=== PATIENT | male | born 1990 | race Caucasian/White ===

== ENCOUNTER 2021-06-19 12:55 | Emergency (ER) | payer MEDICAID, OTHER, SELFPAY ==
[2021-06-19 14:10] VITALS: BP 147/76; PULSE 86; TEMP 37.2; O2SAT 99; BMI 32.5
[2021-06-19 14:23] LABS: MANUAL DIFF FLAG NO
[2021-06-19 14:24] LABS: Basophils Percent Auto 0.5 % (0-2); Eosinophils Absolute Auto 0.3 X10*3/uL (0.0-0.4); Eosinophils Percent Auto 3.3 % (0-4); Hematocrit 48.4 % (42.0-52.0); Hemoglobin 16.2 g/dl (14.0-18.0); Imm Gran Abs Auto 0.02 X10*3/uL (0.00-0.03); Imm Gran Pct Auto 0.3 % (0.0-0.4); Lymphocytes Absolute Auto 2.7 X10*3/uL (1.2-4.9); Lymphocytes Percent Auto 34.4 % (20-40); Mean Corpuscular HGB Conc 33.5 g/dl (31.0-36.0); Mean Corpuscular Hemoglobin 30.7 pg (27.0-33.0); Mean Corpuscular Volume 91.8 fL (80.0-98.0); Mean Platelet Volume 9.9 fL (9.4-12.4); Monocytes Absolute Auto 0.6 X10*3/uL (0.1-1.2); Monocytes Percent Auto 7.4 % (2-11); Neutrophils Absolute Auto 4.3 x10*3/uL (2.0-8.3); Neutrophils Percent Auto 54.1 % (45-73); Platelet Count 306 X10*3/uL (160-400); Red Blood Count 5.27 X10*6/uL (4.60-5.80); Red Cell Distribution Width 12.6 % (11.0-16.0); White Blood Count 7.9 X10*3/uL (4.8-10.8)
[2021-06-19 14:36] LABS: Anion Gap 11 (12-20); Blood Urea Nitrogen 9 mg/dL (9-16); Calcium 9.6 mg/dL (8.4-10.2); Carbon Dioxide 28 mmol/L (22-29); Chloride 105 mmol/L (96-108); Creatinine Clr Calc Pharmacy 110.7; Estimated Glomerular Filt Rate > 60; Glucose Random 99 mg/dL (60-115); Potassium 4.3 mmol/L (3.3-5.1); Sodium 140 mmol/L (135-145)
--- NOTE | 2021-06-19 14:43 | ED.SKABFB ---
HPI - Skin/Abscess/Foreign Bdy General Chief complaint: Skin/Abscess/Foreign Body <EM Fletcher Last Filed: 06/19/21 14:52> Stated complaint: Cyst/fever <EM Fletcher Last Filed: 06/19/21 14:52> Time Seen by Provider: 06/19/21 14:23 <Marianne Coates NP - Last Filed: 06/19/21 14:52> Source: patient and interpreter translator <EM Fletcher Last Filed: 06/19/21 14:52> Mode of arrival: ambulatory <EM Fletcher Last Filed: 06/19/21 14:52> Limitations: language barrier <EM Fletcher Last Filed: 06/19/21 14:52> History of Present Illness HPI narrative: 30-year-old male Ghanaian-speaking here with reports of swelling, redness and pain to the inner right thigh for 3-4 days. No fevers or chills <EM Fletcher Last Filed: 06/19/21 14:52> Related Data Home medications: Previous Rx's Medication Instructions Recorded doxycycline monohydrate 100 mg 100 mg PO BID #20 tab 06/19/21 tablet <EM Fletcher Last Filed: 06/19/21 14:52> Allergies/Adverse reactions: Allergies Allergy/AdvReac Type Severity Reaction Status Date / Time No Known Drug Allergies Allergy Unknown Verified 06/19/21 14:16 <EM Fletcher Last Filed: 06/19/21 14:52> Review of Systems Review of Systems: Yes all other systems are reviewed and are negative <EM Fletcher Last Filed: 06/19/21 14:52> Constitutional: Constitutional: Reports no additional constitutional complaints, Denies body ache(s), Denies chills, Denies fever(s), Denies headache(s) and Denies weakness <EM Fletcher Last Filed: 06/19/21 14:52> Eyes: Eyes: Reports no additional eye complaints and Denies change in vision <Marianne Coates NP - Last Filed: 06/19/21 14:52> ENT: Reports system reviewed and no additional complaints, except as documented, Denies dizziness, Denies headache(s), Denies nasal congestion, Denies nasal discharge and Denies neck pain <Marianne Coates NP - Last Filed: 06/19/21 14:52> Cardiovascular: Cardiovascular: Reports no additional cardiovascular complaints, Denies chest pain, Denies leg edema and Denies dyspnea <Marianne Coates NP - Last Filed: 06/19/21 14:52> Respiratory: Respiratory: Reports no additional respiratory complaints, Denies cough and Denies dyspnea <Marianne Coates NP - Last Filed: 06/19/21 14:52> Gastrointestinal: Gastrointestinal: Reports no additional gastrointestinal complaints, Denies abdominal pain, Denies diarrhea, Denies nausea and Denies vomiting <Marianne Coates NP - Last Filed: 06/19/21 14:52> Genitourinary: Genitourinary: Denies urinary incontinence <Marianne Coates NP - Last Filed: 06/19/21 14:52> Musculoskeletal: Musculoskeletal: Reports no additional musculoskeletal complaints, Denies back pain, Denies arthralgias, Denies joint swelling, Denies neck pain, Denies numbness and Denies tingling <Marianne Coates NP - Last Filed: 06/19/21 14:52> Integumentary/Breasts: Skin/Breast: Reports system reviewed and no additional complaints, except as docu, Reports swelling, Reports erythema and Denies rash <Marianne Coates NP - Last Filed: 06/19/21 14:52> Neurologic: Reports system reviewed and no additional complaints, except as documented, Denies Abnormal speech present, Denies dizziness, Denies headache(s), Denies numbness, Denies tingling and Denies weakness <Marianne Coates NP - Last Filed: 06/19/21 14:52> PMF Past Medical History Attestation statement: The following information was validated with the patient. <Marianne Coates NP - Last Filed: 06/19/21 14:52> Source: old records reviewed and nursing notes reviewed <Marianne Coates NP - Last Filed: 06/19/21 14:52> Social History Social History: Social History Advance Directives: No Advance Directives Information Provided: No <Marianne Coates NP - Last Filed: 06/19/21 14:52> Physical Exam Vital Signs: Vital Signs: Last Vital Signs Temp 99.0 F 06/19/21 14:10 Pulse 86 06/19/21 14:10 BP 147/76 H 06/19/21 14:10 Pulse Ox 99 06/19/21 14:10 BMI result Body Mass Index 32.5 <Marianne Coates NP - Last Filed: 06/19/21 14:52> Vital Signs: Last Vital Signs Temp 99.0 F 06/19/21 14:10 Pulse 86 06/19/21 14:10 BP 147/76 H 06/19/21 14:10 Pulse Ox 99 06/19/21 14:10 BMI result Body Mass Index 32.5 <Hermann Grant MD - Last Filed: 06/21/21 06:58> Const: General: cooperative, healthy appearing, comfortable and no acute distress <Marianne Coates NP - Last Filed: 06/19/21 14:52> Orientation/consciousness: patient oriented x3 <Marianne Coates NP - Last Filed: 06/19/21 14:52> Limitations: no limitations <Marianne Coates NP - Last Filed: 06/19/21 14:52> HENMT: Head: Yes normal to inspection <Marianne Coates NP - Last Filed: 06/19/21 14:52> Ears: hearing grossly normal bilaterally <Marianne Coates NP - Last Filed: 06/19/21 14:52> General nose exam: Normal external nose present <Marianne Coates NP - Last Filed: 06/19/21 14:52> Face and sinus: Yes normal facial exam <Marianne Coates NP - Last Filed: 06/19/21 14:52> Mouth: Normal oral and palatal mucosa present <Marianne Coates NP - Last Filed: 06/19/21 14:52> Throat: Yes posterior oropharynx normal <Marianne Coates NP - Last Filed: 06/19/21 14:52> Eyes: General: appearance normal, both eyes and all related structures <Marianne Coates NP - Last Filed: 06/19/21 14:52> Pupils: Equal, round and reactive pupils present <Marianne Coates POLITICAL REPORTER - Last Filed: 06/19/21 14:52> Neck: Neck: Yes normal visual inspection <Marianne Coates POLITICAL REPORTER - Last Filed: 06/19/21 14:52> Chest: Chest palpation & inspection: normal inspection of the chest <Marianne Coates NP - Last Filed: 06/19/21 14:52> Resp: Effort & Inspection: normal respiratory effort <Marianne Coates NP - Last Filed: 06/19/21 14:52> Auscultation: clear to auscultation bilaterally <Marianne Coates POLITICAL REPORTER - Last Filed: 06/19/21 14:52> Cardio: Rate: regular rate <Marianne Coates NP - Last Filed: 06/19/21 14:52> Rhythm: regular rhythm <Marianne Coates POLITICAL REPORTER - Last Filed: 06/19/21 14:52> Peripheral pulses: Peripheral pulses 2+ throughout <Marianne Coates POLITICAL REPORTER - Last Filed: 06/19/21 14:52> GI: Inspection: Yes normal to inspection <Marianne Coates NP - Last Filed: 06/19/21 14:52> Palpation (GI): Soft to palpation and nontender <Marianne Coates POLITICAL REPORTER - Last Filed: 06/19/21 14:52> Auscultation: normal bowel sounds <Marianne Coates NP - Last Filed: 06/19/21 14:52> Back/Spine/Pelvis: Thoracic/Lumbar Spine: thoracic and lumbar spine normal to inspection <Marianne Coates NP - Last Filed: 06/19/21 14:52> Skin: Other: To the right inner groin there is a small area of redness, swelling and induration. There is no fluctuance or pointing. <Marianne Coates NP - Last Filed: 06/19/21 14:52> General skin exam: no rashes or lesions noted <Marianne Coates NP - Last Filed: 06/19/21 14:52> Neuro: General: patient oriented x3, no focal motor deficits and normal sensation to monofilament <Marianne Coates NP - Last Filed: 06/19/21 14:52> Cranial nerves: Yes Equal, round and reactive pupils present <EM Fletcher Last Filed: 06/19/21 14:52> Cognition (Neuro): normal cognition <Marianne Coates NP - Last Filed: 06/19/21 14:52> Speech: No Abnormal speech present <EM Fletcher Last Filed: 06/19/21 14:52> Gait exam (Neuro): Normal gait present <EM Fletcher Last Filed: 06/19/21 14:52> Motor exam (neuro): 5/5 motor strength present throughout <Marianne Coates NP - Last Filed: 06/19/21 14:52> Extrem: General: Yes normal to inspection <Marianne Coates NP - Last Filed: 06/19/21 14:52> Course Course Course Narrative: 30-year-old here with local area of redness, swelling and tenderness to the right inner groin consistent with a small abscess. There is no fluctuance or pointing of so at this time I do not feel like an incision and drainage would be helpful. Recommend patient do oral antibiotics and warm compresses at home. Reviewed worrisome signs and symptoms of when to return to the emergency department. Comfortable discharge home. <EM Fletcher Last Filed: 06/19/21 14:52> MDM - Skin/Abscess/Foreign Bdy Medical Records Attestation: I reviewed the patient's medical records. <EM Fletcher Last Filed: 06/19/21 14:52> Lab Data Attestation: I reviewed the patient's lab results. <Marianne Coates NP - Last Filed: 06/19/21 14:52> Result diagrams: : 06/19/21 14:19 06/19/21 14:19 <Marianne Coates NP - Last Filed: 06/19/21 14:52> Labs: Lab Results 06/19/21 06/19/21 Range/Units 14:19 14:19 WBC 7.9 (4.8-10.8) X10*3/uL RBC 5.27 (4.60-5.80) X10*6/uL Hgb 16.2 (14.0-18.0) g/dl Hct 48.4 (42.0-52.0) % MCV 91.8 (80.0-98.0) fL MCH 30.7 (27.0-33.0) pg MCHC 33.5 (31.0-36.0) g/dl RDW 12.6 (11.0-16.0) % Plt Count 306 (160-400) X10*3/uL MPV 9.9 (9.4-12.4) fL Immature Gran % (Auto) 0.3 (0.0-0.4) % Neut % (Auto) 54.1 (45-73) % Lymph % (Auto) 34.4 (20-40) % [place] % (Auto) 7.4 (2-11) % Eos % (Auto) 3.3 (0-4) % Baso % (Auto) 0.5 (0-2) % Lymph # (Auto) 2.7 (1.2-4.9) X10*3/uL [place] # (Auto) 0.6 (0.1-1.2) X10*3/uL Eos # (Auto) 0.3 (0.0-0.4) X10*3/uL Baso # (Auto) 0.0 (0.0-0.2) X10*3/uL Abs Immat Gran (auto) 0.02 (0.00-0.03) X10*3/uL Absolute Neuts (auto) 4.3 (2.0-8.3) x10*3/uL Absolute Nucleated RBC 0.000 (0.0-0.012) X10*3/uL Nucleated RBC % (auto) 0.0 (0.0-0.2) /100WBC Sodium 140 (135-145) mmol/L Potassium 4.3 (3.3-5.1) mmol/L Chloride 105 (96-108) mmol/L Carbon Dioxide 28 (22-29) mmol/L Anion Gap 11 L (12-20) BUN 9 (9-16) mg/dL Creatinine 1.00 (0.5-1.4) mg/dL Estim Creat Clear Calc 110.7 Estimated GFR > 60 Random Glucose 99 (60-115) mg/dL Calcium 9.6 (8.4-10.2) mg/dL <Marianne Coates, POLITICAL REPORTER - Last Filed: 06/19/21 14:52> Lab Results 06/19/21 06/19/21 Range/Units 14:19 14:19 WBC 7.9 (4.8-10.8) X10*3/uL RBC 5.27 (4.60-5.80) X10*6/uL Hgb 16.2 (14.0-18.0) g/dl Hct 48.4 (42.0-52.0) % MCV 91.8 (80.0-98.0) fL MCH 30.7 (27.0-33.0) pg MCHC 33.5 (31.0-36.0) g/dl RDW 12.6 (11.0-16.0) % Plt Count 306 (160-400) X10*3/uL MPV 9.9 (9.4-12.4) fL Immature Gran % (Auto) 0.3 (0.0-0.4) % Neut % (Auto) 54.1 (45-73) % Lymph % (Auto) 34.4 (20-40) % [place] % (Auto) 7.4 (2-11) % Eos % (Auto) 3.3 (0-4) % Baso % (Auto) 0.5 (0-2) % Lymph # (Auto) 2.7 (1.2-4.9) X10*3/uL [place] # (Auto) 0.6 (0.1-1.2) X10*3/uL Eos # (Auto) 0.3 (0.0-0.4) X10*3/uL Baso # (Auto) 0.0 (0.0-0.2) X10*3/uL Abs Immat Gran (auto) 0.02 (0.00-0.03) X10*3/uL Absolute Neuts (auto) 4.3 (2.0-8.3) x10*3/uL Absolute Nucleated RBC 0.000 (0.0-0.012) X10*3/uL Nucleated RBC % (auto) 0.0 (0.0-0.2) /100WBC Sodium 140 (135-145) mmol/L Potassium 4.3 (3.3-5.1) mmol/L Chloride 105 (96-108) mmol/L Carbon Dioxide 28 (22-29) mmol/L Anion Gap 11 L (12-20) BUN 9 (9-16) mg/dL Creatinine 1.00 (0.5-1.4) mg/dL Estim Creat Clear Calc 110.7 Estimated GFR > 60 Random Glucose 99 (60-115) mg/dL Calcium 9.6 (8.4-10.2) mg/dL <Hermann Grant MD - Last Filed: 06/21/21 06:58> Discharge Plan Discharge Clinical Impression: Abscess of skin or subcutaneous tissue <Marianne Coates NP - Last Filed: 06/19/21 14:52> Patient Disposition: Home, Self-Care <Marianne Coates NP - Last Filed: 06/19/21 14:52> Instructions: Abscess (ED) <Marianne Coates NP - Last Filed: 06/19/21 14:52> Additional Instructions: Warm compresses 3-4 times daily Take all of the antibiotics as prescribed Return for fever, increasing redness or warmth <Marianne Coates NP - Last Filed: 06/19/21 14:52> Prescriptions: New doxycycline monohydrate 100 mg tablet 100 mg PO BID Qty: 20 RF: 0 <Marianne Coates NP - Last Filed: 06/19/21 14:52> Referrals: Physician,Unknown J [Physician] - 2 days <Marianne Coates NP - Last Filed: 06/19/21 14:52> Interventions: ED Discharge Assessment Last Done: 06/19/21 14:46 <Marianne oCates NP - Last Filed: 06/19/21 14:52> Discharge Date/Time: 06/19/21 14:47 <Marianne Coates NP - Last Filed: 06/19/21 14:52> Print Language: Ghanaian <Marianne Coates NP - Last Filed: 06/19/21 14:52>
== END 2021-06-19 14:47 | disposition home or self-care (01) ==
LOC: HO.ED 14:42
PROVIDERS: Emergency Provider Emergency Medicine
DX: L02.214 Cutaneous abscess of groin (principal); Z79.899 Other long term (current) drug therapy
CPT/HCPCS: 36415; 80048; 85025; 99283

== ENCOUNTER 2025-03-19 20:09 | Emergency (ER) | payer OTHER, SELFPAY ==
[2025-03-19 20:14] VITALS: BP 139/85; PULSE 85; RESP 16; TEMP 36.3; O2SAT 100; BMI 32.3
--- OUTSIDE RECORDS SUMMARY | 2025-03-19 20:42 | XMS_ITS | Encounter Summary ---
Author Organization [facility] Address [address] [facility] [address] [place] [id number] Phone Care Team Providers Care Mill Washer Name Role Phone Pcp, Unknown Primary Care Provider Kendrick Madrid MD Primary Care Provider [phone] Encounter Details Date Type Department Care Team (Late st Contact Info) Description 07/30/2022 Procedure Pass [facility], Ct Scan - [address] [address] Social History Tobacco Use Types Packs/Day Years Used Date Smoking Tobacco: Never Assessed Sex and Gender Information Value Date Recorded Sex Assigned at Male 11/17/2024 11:57 AM EDT Legal Sex Male 11:51 AM EDT Gender Identity Male 11/17/2024 11:57 AM EDT Sexual Orientation Not on file documented as of this encounter Functional Status * Calculated C-SSRS Risk Score (Lifetime/Recent) Answer Date of Assessment Author No Risk Indicated 07/30/2022 9:10 AM Tamara Rocha RN * [place] Suicide Severity Rating Scale (Screener/Recent Self-Report) Question Answer Date of Assessment Author 1. Wish to be (Past 1 Month) No 023 9:10 AM Tamara Rocha RN 2. Non-Specific Active Suici sahil Thoughts (Past 1 Month) No 07/30/2022 9:10 AM Gali Rocha RN 6. Suicidal Behavior (Lifetime) No 9:10 AM Tamara Rocha RN documented as of this encounter Plan of Treatment Not on file documented as of this encounter Visit Diagnoses Not on filedocumented in this encounter Additional Health Concerns Infection Onset Date Last Indicated Resolved Time CoV-Risk 10/26/2023 10/26/2023 11/06/2023 1:22 AM EDT CoV-Risk 12/30/2023 12/30/2023 12/30/2023 12:2 3 PM EDT COVID-19 12/30/2023 12/30/2023 01/20/2024 1:21 AM EDT documented as of this encounter Care Teams Mill Washer Relationship Specialty Start Date End Date Pcp, Unknown PCP - General 07/30/22 05/23/23 Kendrick Delgado MD [address] [place] [phone] [email or web address] PCP - General Family Medicine 05/24/23 documented as of this encounter Additional Source Comments The information contained in this document represents components of the legal health record. It is not the complete legal health record.[facility]
--- OUTSIDE RECORDS SUMMARY | 2025-03-19 20:42 | XMS_ITS | Encounter Summary ---
Author Organization [facility] Address [address] [place] [address] [address] [place] [address] Care Team Providers Care Client Executive Name Role Phone Unavailable Primary Care Provider Unavailabl e Encounter Details Date Type Department Care Team (Late st Contact Info) Description 03/09/2023 Orders Only [facility] [address] [place] [address] Danae Varma DDS [address] [place], [place] [id number] Social History Tobacco Use Types Packs/Day Years Used Date Smoking Tobacco: Never Passive Smoke Exposure: Never Smokeless Tobacco: Never Alcohol Use Standard Drinks/Week Comments Never 0 (1 standard drink = 0.6 oz pur e alcohol) Sex and Gender Information Value Date Recorded Sex Assigned at Male 05/01/2022 3:00 PM EST Legal Sex Male 8:40 PM EDT Gender Identity Choose not to disclose 3:00 PM EST Sexual Orientation Choose not to disclose 2021 3:00 PM EST documented as of this encounter Plan of Treatment Not on file documented as of this encounter Visit Diagnoses Not on filedocumented in this encounter
--- OUTSIDE RECORDS SUMMARY | 2025-03-19 20:42 | XMS_ITS | Clinical Summary ---
Author Organization [facility] Address [address] [address] Phone Care Team Providers Care Loader [employer] Name Role Phone Kendrick Delgado MD Primary Care Provider [phone] Medications amitriptyline (ELAVIL) 50 MG tablet nightly at bedtime. Active hydrOXYzine (ATARAX) 25 MG tablet every 8 (eight) hours as needed. 03/30/2023 Active melatonin 5 mg Tab nightly at bedtime. 05/15/2023 Active valACYclovir (VALTREX) 1000 MG tablet TOME JESSICA TABLETA DOS VECES AL D A POR 7 D 05/15/2023 Active albuterol 90 mcg/actuation inhaler Inhale 2 puffs into the lungs every 6 (six) hours as needed for wheezing. 8 g 05/24/2023 Active inhaler spacing device (AEROCHAMBER,BR EATHERITE) Spcr Inhale 1 each into the lungs every 4 (four) hours as needed. 1 each 05/24/2023 Active valACYclovir (VALTREX) 500 MG tablet Take 1 tablet by mouth 2 (two) times a day. 08/24/2023 Active ibuprofen (ADVIL,MOTRIN) 600 MG tablet TAKE 1 TABLET (600 MG) BY MOUTH EVERY 6 (SIX) HOURS IF NEEDED FOR MILD PAIN FOR UP TO 20 DOSES. 09/17/2023 Active lidocaine (LIDODERM) 5 % Place 1 patch onto the skin daily. Remove & Discard patch within 12 hours or as directed by 30 patch 10/12/2024 Active Active Problems No known active problems Encounters Date Type Department Care Team Description 02/12/2025 1:45 PM EDT Office Visit [address] [address] Adrianne Lara NP Kobylarz, Sandra, PT Acute left-sided low back pain with left-sided sciatica (Primary Dx) 02/03/2025 3:15 PM EDT Office Visit [address] [address] Adrianne Lara NP Kobylarz, Sandra, LAURO Acute left-sided low back pain with left-sided sciatica (Primary Dx) 01/23/2025 12:00 PM EDT Office Visit [address] [address] Kendrick Delgado MD Kobylarz, Sandra, PT Acute left-sided low back pain with left-sided sciatica (Primary Dx) 01/21/2025 4:00 PM EDT Office Visit [address] [address] Adrianne Lara NP Kobylarz, Sandra, PT Acute left-sided low back pain with left-sided sciatica (Primary Dx) 01/15/2025 6:45 AM EDT Office Visit [address] [address] Kendrick Delgado MD Kobylarz, Sandra, PT Acute left-sided low back pain with left-sided sciatica (Primary Dx) 01/12/2025 6:45 AM EDT Office Visit [address] [address] Kendrick Delgado MD Kobylarz, Sandra, PT Acute left-sided low back pain with left-sided sciatica (Primary Dx) 01/05/2025 6:45 AM EDT Office Visit [address] [address] Kendrick Delgado, Chayo Butler, PT Acute left-sided low back pain with left-sided sciatica (Primary Dx) 01/02/2025 6:45 AM EDT Office Visit [address] [address] Kendrick Delgado, Chayo Butler, PT Acute left-sided low back pain with left-sided sciatica (Primary Dx) 12/25/2024 8:15 AM EDT Office Visit [address] [address] Kendrick Delgado, Chayo Butler, PT Acute left-sided low back pain with left-sided sciatica (Primary Dx) 12/18/2024 6:45 AM EDT Office Visit [address] [address] Kendrick Delgado, Chayo Butler, PT Acute left-sided low back pain with left-sided sciatica (Primary Dx) from Last 3 Months Social History Tobacco Use Types Packs/Day Years Used Date Smoking Tobacco: Never Smokeless Tobacco: Never Tobacco Cessation:Counseling Given: Not Answered Education Answer Date Recorded Are you interested in more education? Not on juvenal e 11/18/2024 Are you concerned about learning? Not on file 11/18/2024 No 11/18/2024 No 11/18/2024 Digital Access Answer Date Recorded No 11/18/2024 No 11/18/2024 Reliable internet access at home? Not on file 11/18/2024 Device with a working camera? Not on file Intimate Partner Violence Answer Date R ecorded Are you denied basic needs s uch as food, clothing, or medical care? No 12/30/2023 In the past 12 months have y ou been in a relationship with a person who hurts, threatens, or tries to control you? No 12/30/2023 Are you denied basic needs s uch as food, clothing, or medical care? No 12/30/2023 In the past 12 months have y ou been in a relationship with a person who hurts, threatens, or tries to control you? No 12/30/2023 Sex and Gender Information Value Date Recorded Sex Assigned at Male 11/17/2024 11:57 AM EDT Legal Sex Male 11:51 AM EDT Gender Identity Male 11/17/2024 11:57 AM EDT Sexual Orientation Not on file Last Filed Vital Signs Vital Sign Reading Time Taken Comments Blood Pressure 143/86 10/12/2024 2:09 PM EDT Pulse 70 10/12/2024 2:09 PM EDT Temperature 36.9 C (98.4 F) 10/12/2024 2:09 PM EDT Respiratory Rate 18 10/12/2024 2:09 PM EDT Oxygen Saturation 99% 10/12/2024 2:09 PM EDT Inhaled Oxygen Concentration - - Weight 87.5 kg (193 lb) 10/12/2024 2:09 PM EDT Height 175.3 cm (5' 9 ) 07/30/2022 9:08 AM EST Body Mass Index 28.5 07/30/2022 9:08 AM EST Plan of Treatment Health Maintenance Due Date Last Done Comments Adult Td,Tdap Booster 1989 LIPID PANEL 1989 DEPRESSION SCREENING 2001 HEPATITIS C SCREENING 11/04/2007 HIV ONE-TIME SCREENING (18-6 5 YEARS) 11/04/2007 INFLUENZA VACCINE (#1) 2024 03/05/2024 COVID-19 VACCINE (2024-2 6 season) 2025 SCREENING FOR DIABETES 12/29/2026 12/30/2023 SMOKING STATUS SCREENING (On ce After 26 Yrs) Completed 10/12/2024 HEPATITIS A VACCINES Aged Out No long er eligible based on patient's age to complete this topic HIB VACCINES Aged Out No longer eligi ble based on patient's age to complete this topic MENINGOCOCCAL VACCINES (ACWY) Aged Out No longer eligible based on patient's age to complete this topic MENINGOCOCCAL VACCINES (B) Aged Out N o longer eligible based on patient's age to complete this topic PNEUMOCOCCAL VACCINES (0-49 years) Aged Out No longer eligible based on patient's age to complete this topic Medical Devices Not on [place] [address] [place] [address] [place] [address] [employer] Care Teams [employer] Relationship Specialty Start Date End Date Kendrick Delgado MD [address] [place] [phone] [email or web address] PCP - General Family Medicine 05/24/23 Additional Source Comments The information contained in this document represents components of the legal health record. It is not the complete legal health record.[facility]
--- OUTSIDE RECORDS SUMMARY | 2025-03-19 20:42 | XMS_ITS | Clinical Summary ---
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 2 Active ibuprofen 600 MG tabletIndicatio ns:Closed fracture of tooth, initial encounter Take 1 tablet (600 mg) by mouth every 6 (six) hours if needed for mild pain for up to 20 doses. 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 Social History Tobacco Use Types Packs/Day Years Used Date Smoking Tobacco: Never Passive Smoke Exposure: Never Smokeless Tobacco: Never Tobacco Cessation:Counseling Given: Not Answered Alcohol Use Standard Drinks/Week Comments Never 0 (1 standard drink = 0.6 oz pur e alcohol) Sex and Gender Information Value Date Recorded Sex Assigned at Male 05/01/2022 3:00 PM EST Legal Sex Male 8:40 PM EDT Gender Identity Choose not to disclose 3:00 PM EST Sexual Orientation Choose not to disclose 2021 3:00 PM EST Last Filed Vital Signs Vital Sign Reading Time Taken Comments Blood Pressure 122/78 04/10/2024 1:06 PM EST Pulse 60 04/10/2024 1:06 PM EST Temperature - - Respiratory Rate - - Oxygen Saturation 98% 04/26/2022 4:15 PM EST Inhaled Oxygen Concentration - - Weight 92.1 kg (203 lb) 01/03/2022 2:00 PM EDT Height 168.9 cm (5' 6.5 ) 01/03/2022 2:00 PM EDT Body Mass Index 32.27 01/03/2022 2:00 PM EDT Plan of Treatment Health Maintenance Due Date Last Done Comments Depression Screening 1989 Lipid Panel 1989 SDOH Screening 1989 Disability Screening 1989 Alcohol/Substance Use Screening 2001 Family Planning (PISQ) 2004 HPV Vaccines (1 - 3-dose series) 2004 DTaP/Tdap/Td Vaccines (1 - Tdap) 2008 Pneumococcal Vaccine: Pediatrics (0 to 5 Years) and At-Risk Patients (6 to 49) Years (1 of 2 - PCV) 2008 Hepatitis A Vaccines (2 of 2 - Risk 2-dose series) 02/10/2022 08/10/2021 Hepatitis B Vaccines (3 of 3 - 19+ 3-dose series) 02/28/2022 01/03/2022, 08/10/2021 COVID-19 Vaccine (3 - 2024- season) 2025 05/05/2022, 09/08/2021 Influenza Vaccine (#1) 2025 05/15/2023 Dental Oral Exam 02/19/2025 08/18/2024, , 04/10/2024, Additional history exists Dental Prophylaxis 02/19/2025 08/18/2024, 1 06/10/2023, 04/23/2023 Tobacco Screening 08/18/2025 08/18/2024 Dental X-Ray: Bitewings 08/19/2025 08/19/19 25, 04/10/2024, 09/17/2023, Additional history exists Dental X-Ray: Full Mouth 08/20/2027 025, 04/23/2023, 10/17/2022 Zoster Vaccines (1 of 2) 11/04/2039 RSV Patients and Patients Aged 60 years or older (1 - 1-dose 75+ series) 2064 HIV Screening Completed 07/14/2021 Hepatitis C Screening Completed 07/14/2021 HIB Vaccines Aged Out No longer eligi ble based on patient's age to complete this topic IPV Vaccines Aged Out No longer eligi ble based on patient's age to complete this topic Meningococcal B Vaccine Aged Out No l onger eligible based on patient's age to complete this topic Meningococcal Vaccine Aged Out No kaia jl eligible based on patient's age to complete this topic RSV under 20 months Aged Out No longe r eligible based on patient's age to complete this topic Rotavirus Vaccines Aged Out No longer eligible based on patient's age to complete this topic Procedures Procedure Name Priority Date/Time Associated Diagnosis Comments Full PROPHYLAXIS - ADULT Routine 08/18/2024 3:00 PM EDT PERIODIC ORAL EVALUATION - ESTABLISHED PATIENT Routine 08/18/2024 3:00 PM EDT INTRAORAL - COMPLETE SERIES OF RADIOGRAPHIC IMAGES Routine 08/18/2024 11:00 AM EDT ZZZ HISTORICAL HEPATITIS C ANTIBODY TEST Routine 07/14/2021 11:52 AM EST HIV 1/2 ANTIGEN/ANTIBODY, FOURTH GENERATION W/RFL Routine 07/14/2021 11:52 AM EST from Last 3 Months or Most Recently Relevant to Health Maintenance Results * -Hepatitis C Antibody Test (07/14/2021 11:52 AM EST) ANTI-HEPATITIS C NEGATIVE (NEG) [facility] Comment: Reference range: Negative This test was performed on the [employer] immunoassay system. 07/14/2021 11:5 2 AM EST us Mu Mckenzie NP HISTORICAL/NON ORDERABLE LAB S Final Result [facility] [address] * -HIV AB-AG 4TH GENERATION (07/14/2021 11:52 AM EST) RESULT 4TH GEN HIV AB-AG NEGATIVE (NEG) [facility] Comment: Negative for antibodies to HIV 1 and HIV 2 and P24 antigen. Reference range: Negative Additional note: Written patient authorization is required for each separate release of this test result. This test was performed on the [employer] immunoassay system. 07/14/2021 11:5 2 AM EST us Mu Mckenzie NP LAB BLOOD ORDERABLES Final R esult [facility] [address] from Last 3 Months or Most Recently Relevant to Health Maintenance Insurance [facility]
--- NOTE | 2025-03-19 20:59 | ED.EXTPRO ---
HPI - Extremity Problem General Chief complaint: Extremity Problem Stated complaint: severe back pain Time Seen by Provider: 03/19/25 20:58 Source: patient Mode of arrival: ambulatory Limitations: no limitations History of Present Illness ED Provider: aPul HARMAN HPI Narrative: The patient is a 34-year-old male presenting to the ED reporting he has been suffering from left lower leg pain secondary to lumbar radiculopathy for the past 5 months, for which time he has been out of work. The patient reports he is scheduled for a lumbar injection on Sunday however was required to go back to light duty at work today. 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 The patient left work and went to the ED at [facility], but left due to wait time and presents to this ED for evaluation. The patient reports he has been compliant with his nighttime gabapentin and his Flexeril, however did not take the Flexeril today as he was working. The patient denies bowel/bladder incontinence, urinary retention, saddle paresthesias, or lower extremity weakness. Related Data Previous Rx's ?Medication ?Instructions ?Recorded doxycycline monohydrate 100 mg 100 mg PO BID #20 tabs 06/19/21 tablet Allergies Allergy/AdvReac Type Severity Reaction Status Date / Time No Known Drug Allergies Allergy Unknown Verified 03/19/25 20:16 Review of Systems Review of Systems: Yes all other systems are reviewed and are negative PMFSH Social History Social History Smoked in Last 30 Days: No Advance Directives: No Advance Directives Information Provided: No Do you have a plan to hurt others: No Plan Physical Exam Vital Signs: Vital Signs: Last Vital Signs Temp 97.4 F 03/19/25 20:14 Pulse 85 03/19/25 20:14 Resp 16 03/19/25 20:14 BP 139/85 03/19/25 20:14 Pulse Ox 100 03/19/25 20:14 O2 Del Method Room Air 03/19/25 20:14 BMI result Body Mass Index 32.3 CONSTITUTIONAL: The patient appears non-toxic, well nourished and in no acute distress. Vital signs as documented. HEAD: Atraumatic, normocephalic. EYES: EOMs grossly intact, pupils equal, conjunctiva clear, no exudate. ENT: Nares patent, no discharge. Airway patent, no audible stridor, visible mucosa is pink and moist without noted lesions. NECK: trachea is midline, no obvious masses or gross abnormalities. CHEST: Symmetric movement, normal appearance. LUNGS: Non-labored work of breathing. CARDIAC: No evidence of hypoperfusion. ABDOMEN: Nondistended, no obvious injury. : Deferred. BACK: No midline spinous process tenderness, no crepitus or step-off. Patient ambulates with a steady gait but with discomfort. EXTREMITIES: Moves all extremities spontaneously without reported pain. No obvious injury or deformity noted. NEURO: Alert and oriented x3, CN II-XII appear grossly intact. Cerebellar Functioning grossly intact. Speech clear and appropriate. SKIN: Warm, dry, color appropriate. No rashes or lesions noted. Medical Decision Making Medical Decision Making MDM Narrative: 9:09 PM 03/19/2025 (Miguel HARMAN): The patient is a 34-year-old male presenting to the ED reporting he has been suffering from left lower leg pain secondary to lumbar radiculopathy for the past 5 months, for which time he has been out of work. The patient reports he is scheduled for a lumbar injection on Sunday however was required to go back to light duty at work today. 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 The patient left work and went to the ED at [facility], but left due to wait time and presents to this ED for evaluation. The patient reports he has been compliant with his nighttime gabapentin and his Flexeril, however did not take the Flexeril today as he was working. The patient denies bowel/bladder incontinence, urinary retention, saddle paresthesias, or lower extremity weakness. On exam the patient is in no acute distress, ambulates with a steady gait but with evidence of discomfort. Patient has no symptoms or findings concerning for cauda equina, no indication for emergent imaging. The patient will be treated with his regularly prescribed gabapentin and Flexeril, as well as lidocaine patch and prednisone. Patient will be discharged with a 5 day course of prednisone in addition to his regular medications. Of note the patient is requesting a work note, we will provide a work note stating he can return to work on Sunday after his injection. Admission/Observation Consideration of admission/observation: Escalation of care including admission/observation considered Discharge Plan Discharge Clinical Impression: Lumbar radiculopathy Patient Disposition: Home, Self-Care Instructions: Back Pain (ED), Lumbar Radiculopathy (ED) Additional Instructions: Thank you for choosing [facility]'s Emergency Department for your care today. At this time there is no indication for admission to the hospital or continued ED observation, and it is safe to discharge you home. Your pain appears related to your underlying diagnosis of lumbar radiculopathy. We are adding a 5 day course of prednisone to your regularly prescribed medications. Please continue taking your gabapentin and Flexeril as directed by your spine support physician. You may take alternating (staggered) doses of ibuprofen 600mg and Tylenol 1000mg every 4 hours as needed for any additional pain. Please rest the injured area, and apply ice for 20 minutes every hour. We also have treated you with a lidocaine patch, if you find this provides you significant relief additional patches can be purchased at any local pharmacy without a prescription. Please follow up with your primary care physician for re-evaluation, additional management of your symptoms, and continued preventative care. If you do not have a primary care physician, please call the [facility] at [phone] to establish a new primary care physician. While waiting to establish your new primary care physician, you can call our Walk-in Care Clinic at [phone] for non-emergency needs. Please return to the emergency department if you develop a severe or sudden change in your symptoms, a fever over 100.4 that does not improve with Tylenol or Ibuprofen, recurrent vomiting, or any other new or worsening symptoms or concerns. Prescriptions: No Action doxycycline monohydrate 100 mg tablet 100 mg PO BID Qty: 20 0RF Referrals: Elena Villegas PA-C [Primary Care Provider, Family Practice] Clinical Impression: Lumbar radiculopathy Stand Alone Forms: Work/School Release Print Language: Bahamian
--- NOTE | 2025-03-19 21:10 | PC.NURSE ---
Assumed care of pt, presents with lower back pain, Pt works at [employer] at [employer], pt states that 5 months ago a pt fell on him he suffered a back injury and has not been to work since, today was his first day back and he was on his feet all-day even though he was suppose to be on light duty, pt thinks he may have exacerbated his lower back injury stating 03/06 pain, [id number]
[2025-03-19] MEDS: Lidocaine 4 % Patch ADH..PATCH 1 PATCH TRANSDERMA (21:24)
[2025-03-19 21:37] VITALS: BP 139/85; PULSE 85; RESP 16; TEMP 36.3; O2SAT 100
== END 2025-03-19 21:38 | disposition home or self-care (01) ==
PROVIDERS: Emergency Provider Emergency Medicine; PCP Physician Assistant
DX: M54.16 Radiculopathy, lumbar region (principal); M54.50 Low back pain, unspecified; M79.605 Pain in left leg
CPT/HCPCS: 99283; 99284